=== PATIENT | female | born 1945 | race Caucasian/White ===

== ENCOUNTER → 2019-04-13 | Outpatient (CLI) | payer MEDICARE ==
[2019-04-13 16:56] LABS: Basophils % (A) 1 %; Eosinophils # (A) 0.2 k/uL (0-0.7); Eosinophils % (A) 3 %; HCT 40.9 % (34.0-46.0); HGB 13.2 gm/dL (11.4-16.0); Lymphocytes # (A) 1.1 k/uL (1.0-4.8); Lymphocytes % (A) 23 %; MCH 30.2 pg (25.0-35.0); MCHC 32.2 g/dL (31.0-37.0); MCV 93.9 fL (80.0-100.0); Monocytes # (A) 0.3 k/uL (0-1.0); Monocytes % (A) 5 %; Neutrophils # (A) 3.3 k/uL (1.3-7.7); Neutrophils % (A) 67 %; Platelet Count 182 k/uL (150-450); RBC 4.36 m/uL (3.80-5.40); RDW 13.8 % (11.5-15.5); WBC 4.9 k/uL (3.8-10.6)
[2019-04-13 17:01] LABS: Potassium 3.8 mmol/L (3.5-5.1)
== END | disposition home or self-care (01) ==
LOC: LABPAT 16:16
PROVIDERS: ATTEND Orthopaedic Surgery
DX: Z01.812 Encounter for preprocedural laboratory examination (principal); M65.341 Trigger finger, right ring finger; R22.31 Localized swelling, mass and lump, right upper limb
CPT/HCPCS: 80051; 85025

== ENCOUNTER 2019-04-20 09:46 | Day surgery (SDC) | payer MEDICARE ==
[2019-04-13 09:31] VITALS: BMI 35.7
--- NOTE | 2019-04-19 15:38 | HP ---
HISTORY AND PHYSICAL DATE OF SURGERY: 04/20/2019 Marti Roldan is a 73-year-old patient seen with symptomatic right ring finger trigger finger as well as a soft tissue mass involving the right palm. We discussed options for treatment. She elected to proceed with surgery. Consent regarding procedure was obtained. PAST MEDICAL HISTORY: Hyperlipidemia, hypertension, gastroesophageal reflux disease. PAST SURGICAL HISTORY: Hand surgery. DAILY MEDICATIONS: 1. Atorvastatin. 2. Aspirin. 3. Metoprolol. 4. Prilosec. 5. Qunipril. ALLERGIES: None. SOCIAL HISTORY: She denies tobacco use. PHYSICAL EVALUATION OF THE RIGHT HAND: There is a soft tissue mass measuring approximately 1 x 1 cm raised by few mm, somewhat tender to palpation. No evidence for infective process. She has tenderness along the A1 filiberto of the right ring finger, clicking, catching. The remaining A1 pulleys are nontender. She has good range of motion of remaining digits. She has good perfusion sensation distally. RADIOGRAPHS: Radiographs were obtained of the right hand revealing some diffuse osteoarthritic changes. IMPRESSION: 1. Right ring finger trigger finger. 2. Right palm soft tissue mass. 3. Hypertension. 4. Hyperlipidemia. PLAN: 1. Release A1 filiberto, right ring finger. 2. Excision soft tissue mass, right palm. MMODL / IJN: [id number] /
[~2019-04-20 09:46] MED LIST: DEXAMETHASONE SOD PHOSPHATE 10 MG/ML 1 ML VIAL IV ONE; HYDROmorphone 0.5 MG/0.5 ML SYRINGE IVP PRN; LACTATED RINGERS 1,000 ML IV SCH; LIDOCAINE 1% 20 ML VIAL (10MG/ML) FOR IV START INTRADERMA PRN; ONDANSETRON 4 MG/2 ML VIAL IVP ONE; SCOPOLAMINE 1.5MG/72HR PATCH TRANSDERM ONE; ceFAZolin IN SWFI 2 GM/20 ML SYRINGE IVP ONE
[2019-04-20 10:21] VITALS: TEMP 97
[2019-04-20] MEDS ORDERED: MIDAZOLAM 2 MG/2 ML VIAL ONE (11:20)
[2019-04-20] MEDS ORDERED: fentaNYL (PF) 50 MCG/ML 2 ML AMP ONE (11:20)
[2019-04-20] MEDS ORDERED: LIDOCAINE 1% INJ 10MG/ML (20 ML MDV) ONE (11:20)
[2019-04-20] MEDS ORDERED: PROPOFOL 10 MG/ML 20 ML VIAL IV ONE (11:20)
[2019-04-20] MEDS ORDERED: BUPIVACAINE (PF) 0.25% 30 ML VIAL SQ ONE (11:33)
--- NOTE | 2019-04-20 12:03 | P.OP ---
Date of Procedure: 04/20/19 Preoperative Diagnosis: 1. Right ring finger trigger finger 2. Symptomatic soft tissue mass right hand Postoperative Diagnosis: Same Procedure(s) Performed: 1. Release A1 filiberto right ring finger 2. Excision soft tissue mass right hand Anesthesia: MAC, local Surgeon: Reji Carl Estimated Blood Loss (ml): 0 Pathology: none sent Condition: stable Disposition: PACU Indications for Procedure: 73-year-old patient seen with symptomatic right ring finger trigger finger along with a symptomatic soft tissue mass involving the right palm. After treatment options were discussed such proceed with surgical release of the A1 filiberto right ring finger and excision of the symptom a soft tissue mass. Consent was obtained. Operative Findings: See description of procedure Description of Procedure: The patient was taken to the operative suite. The patient received IV antibiotics. The patient underwent IV sedation by the department of anesthesia. A well-padded tourniquet placed proximal right upper extremity. The right upper extremity was prepped and draped in the normal sterile orthopedic fashion. The proposed incision site was infiltrated with 10 mL quarter percent plain Marcaine. When sufficient local analgesia was noted the extremity was elevated and the tourniquet was insufflated to 250. I now made an incision between the area A1 filiberto ring finger and soft tissue mass. The incision measured approximately 1.5 cm. I now dissected down to the soft tissue mass. It appeared to be hypertrophic palmar fascia. This was excised. There was no other hypertrophic tissue that remained. I now dissected more proximally towards the area of the A1 filiberto. The A1 filiberto was identified. The A1 filiberto was released. I now took the ring finger through range of motion and had good range of motion with good excursion and no catching. There was good hemostasis. The wound was irrigated. The incision was repaired with nylon suture. Sterile dressings were applied. The tourniquet was released and immediate capillary refill noted. Sterile web roll and Coban were now applied. The patient was awakened having entire procedure well.
[2019-04-20 12:04] VITALS: BP 120/65; PULSE 62; RESP 18
== END 2019-04-20 12:31 | disposition home or self-care (01) ==
LOC: OR 09:46
PROVIDERS: ATTEND Orthopaedic Surgery
DX: M65.341 Trigger finger, right ring finger (principal); E78.5 Hyperlipidemia, unspecified; M79.9 Soft tissue disorder, unspecified; I10 Essential (primary) hypertension; K21.9 Gastro-esophageal reflux disease without esophagitis; Z87.891 Personal history of nicotine dependence; Z79.82 Long term (current) use of aspirin; Z79.899 Other long term (current) drug therapy; Z88.0 Allergy status to penicillin; Z88.8 Allergy status to other drugs, medicaments and biological substances
CPT/HCPCS: 26055; 26115; J2250; J1100; J2405; J2001; J3010; J2704; J0690

== ENCOUNTER → 2020-01-21 | Outpatient (CLI) | payer MEDICARE ==
--- NOTE | 2020-01-21 10:59 | MR ---
EXAMINATION TYPE: MR knee RT wo con DATE OF EXAM: 01/21/2020 COMPARISON: Outside right knee x-ray January 10, 2020. HISTORY: Right knee pain, swelling for 3 weeks, no injury TECHNIQUE: Multiplanar, multisequence images of the knee is performed without IV contrast. FINDINGS: MEDIAL MENISCUS: Anterior and posterior horns are intact without tear. LATERAL MENISCUS: Anterior and posterior horns are intact without tear. CRUCIATE LIGAMENTS: The anterior and posterior cruciate ligaments are intact and unremarkable. COLLATERAL LIGAMENTS: The medial collateral ligament and lateral collateral ligament complex are inta ct and unremarkable. EXTENSOR MECHANISM: Visualized quadriceps and patellar tendons are intact. EFFUSION: There is a large suprapatellar joint effusion. POPLITEAL CYST: No popliteal/quinonez cyst. TRICOMPARTMENT SPACES: [id number] tricompartment joint space loss with mild spurring patellofem oral compartment CARTILAGE: There is chondromalacia patella with thinning of articular cartilage along the posterior p atellar pole more prominent medially. No full-thickness cartilaginous defect. BONE MARROW SIGNAL: Elongated ovoid low T1 signal lesion posterior proximal tibial metaphysis mediall y corresponds to sclerotic focus presumed benign sagittal image 13 for reference. OTHER: No additional significant abnormality is appreciated. IMPRESSION: 1. Large suprapatellar joint effusion. 2. 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 3. No meniscal or ligamentous tear.
== END | disposition home or self-care (01) ==
LOC: RADMRIMAIN 09:52
PROVIDERS: ATTEND Orthopaedic Surgery
DX: M17.11 Unilateral primary osteoarthritis, right knee (principal)